=== PATIENT | male | born 1940 | race African-American/Black ===

== ENCOUNTER 2022-07-28 06:19 | Inpatient (IN) | payer MEDICARE ==
[2022-07-28] VITALS (15 sets, daily range): BP systolic 110–137; BP diastolic 66–97
[~2022-07-28] VITALS: Ht 193 cm; Wt 89.8 kg
[~2022-07-28 06:19] MED LIST: AZOPT OP; BRIM10DR2 OP; LATA2.5D14 OP; LOSA25TA26 PO; WARFARIN PO
[2022-07-28 07:48] LABS: HEMATOCRIT. 35.3 % (42.0-52.0); HEMOGLOBIN. 10.4 g/dL (14.0-18.0); MEAN CORPUSCULAR HEMOGLOBIN 21.5 pg (28.0-32.0); MEAN CORPUSCULAR VOLUME 73.2 fL (80.0-94.0); MEAN PLATELET VOLUME 9.1 fl (7.4-10.4); PLATELET 121 x1000/uL (130-400); RED BLOOD CELL COUNT 4.82 mill/uL (4.7-6.1); RED CELL DISTRIBUTION WIDTH 17.7 % (11.6-14.6)
[2022-07-28] MEDS ORDERED: CEFAZOLIN 1000MG PREMIX 100 ML IV ONE (07:48)
[2022-07-28 07:56] LABS: CHLORIDE 103 mEq/L (98-107)
[2022-07-28] MEDS ORDERED: IODIXANOL 320MG/ML 100 ML BOTTLE IV ONE (08:01)
[2022-07-28] MEDS ORDERED: LIDOCAINE HCL 1% 20ML VIAL (Pyxis) INJ ONE ×3 (08:14→10:55)
[2022-07-28] MEDS ORDERED: LIDOCAINE HCL 1% 10 MG/ML 10ML VIAL ONE (08:19)
[2022-07-28] MEDS ORDERED: MIDAZOLAM HCL 2 MG/2 ML VIAL ONE (08:20)
[2022-07-28] MEDS ORDERED: FENTANYL CITRATE/PF 50MCG/ML 2ML VIAL ONE ×3 (08:20→09:49)
[2022-07-28] MEDS ORDERED: PROPOFOL 200MG/20ML VIAL IV ONE (08:20)
[2022-07-28] MEDS ORDERED: GENTAMICIN SULF 40MG/ML 2ML VIAL ONE ×2 (08:22→12:40)
[2022-07-28] MEDS ORDERED: ROCURONIUM BROMIDE 10MG/ML VIAL 5ML IV ONE (08:29)
[2022-07-28] MEDS ORDERED: ONDANSETRON HCL 4MG/2ML INJ IV PRN (09:00)
[2022-07-28] MEDS ORDERED: MEPERIDINE HCL/PF 25MG/ML CPJ IV PRN (09:00)
[2022-07-28] MEDS ORDERED: HYDROMORPHONE HCL/PF 2MG/ML CPJ IV PRN (09:00)
[2022-07-28] MEDS ORDERED: LABETALOL 5MG/ML SYR 20 MG/4 ML SYRINGE IV PRN (09:00)
[2022-07-28 10:01] LABS: PLATELET ESTIMATE DECREASED
[2022-07-28] MEDS ORDERED: NALOXONE HCL 0.4 MG/ML 1ML VIAL ONE (13:27)
[2022-07-28] MEDS ORDERED: HYDROCODONE/ACETAMINOPHEN 5/325MG TABLET PO PRN (13:45)
[2022-07-28] MEDS ORDERED: PHENYLEPHRINE 100MCG/ML 10ML VIAL (CATH LAB) ONE (16:07)
[2022-07-28] MEDS ORDERED: APIX5TAB MT (17:08)
[2022-07-28] MEDS ORDERED: DORZ10DR8 EACHEYE (17:10)
[2022-07-28] MEDS ORDERED: NALOXONE HCL 0.4MG/ML VIAL IV PRN (17:45)
[2022-07-28] MEDS ORDERED: APIXABAN 5 MG TABLET PO SCH (19:00)
[2022-07-28 20:30] LABS: BASOPHILS % 0.4 % (0.0-2.0); EOSINOPHILS % 0.8 % (0.0-5.0); HEMATOCRIT. 32.7 % (42.0-52.0); HEMOGLOBIN. 9.8 g/dL (14.0-18.0); LYMPHOCYTES % 22.3 % (20.0-50.0); MEAN CORPUSCULAR HEMOGLOBIN 22.2 pg (28.0-32.0); MEAN CORPUSCULAR VOLUME 74.2 fL (80.0-94.0); MEAN PLATELET VOLUME 8.6 fl (7.4-10.4); MONOCYTES % 14.9 % (2.0-8.0); NEUTROPHILS % 61.6 % (40.0-76.0); PLATELET 91 x1000/uL (130-400); RED CELL DISTRIBUTION WIDTH 17.4 % (11.6-14.6)
[2022-07-28 20:40] LABS: INR 1.2; PARTIAL THROMBOPLASTIN TIME 40.5 sec (23.4-31.0)
[2022-07-29] VITALS (47 sets, daily range): BP systolic 96–142; BP diastolic 60–94
[2022-07-29 05:32] LABS: BASOPHILS % 0.3 % (0.0-2.0); EOSINOPHILS % 0.5 % (0.0-5.0); HEMATOCRIT. 30.6 % (42.0-52.0); HEMOGLOBIN. 9.5 g/dL (14.0-18.0); LYMPHOCYTES % 16.3 % (20.0-50.0); MEAN CORPUSCULAR HEMOGLOBIN 22.4 pg (28.0-32.0); MEAN CORPUSCULAR VOLUME 72.4 fL (80.0-94.0); MONOCYTES % 14.3 % (2.0-8.0); NEUTROPHILS % 68.6 % (40.0-76.0); PLATELET 96 x1000/uL (130-400); RED BLOOD CELL COUNT 4.23 mill/uL (4.7-6.1)
[2022-07-29 05:37] LABS: CHLORIDE 103 mEq/L (98-107)
[2022-07-29] MEDS ORDERED: POTASSIUM CHLORIDE 20MEQ/PACKET PO SCH (07:45)
[2022-07-29] MEDS: LOSARTAN POTASSIUM 25 MG TABLET PO SCH (08:24)
[2022-07-29] MEDS ORDERED: MAGNESIUM 2 G PREMIX 50 ML IV ONE (08:30)
[2022-07-29] MEDS ORDERED: NON FORMULARY PATIENT HOME MED XX SCH ×2 (09:00→17:15)
[2022-07-29] MEDS: DRONEDARONE 400 MG PO SCH ×2 (11:46→18:03)
[2022-07-29] MEDS: DORZOLAMIDE 2% OPHTH 10 ML BOTTLE EACHEYE SCH ×4 (11:48→18:03)
[2022-07-29] MEDS ORDERED: CARV3.1242 PO (17:20)
[2022-07-29] MEDS ORDERED: APIX5TAB PO (17:20)
[2022-07-29] MEDS ORDERED: DAPA10TA PO (17:20)
[2022-07-29] MEDS ORDERED: FOLI-43 PO (17:20)
[2022-07-29] MEDS ORDERED: NETA2.5D OP (17:20)
[2022-07-29] MEDS ORDERED: BIMA2.5D4 OP (17:20)
[2022-07-29] MEDS ORDERED: FURO40TA5 PO (17:20)
[2022-07-29] MEDS ORDERED: ATOR40TA70 PO (17:20)
[2022-07-29] MEDS: CARVEDILOL 3.125 MG TABLET PO SCH (21:39)
[2022-07-29] MEDS: ATORVASTATIN CALCIUM 40MG TABLET PO SCH (21:39)
[2022-07-29] MEDS: LUMIGAN 0.01% OP SCH (22:00)
[2022-07-30] VITALS (46 sets, daily range): BP systolic 98–133; BP diastolic 58–94
[2022-07-30 06:08] LABS: HEMATOCRIT. 30.6 % (42.0-52.0); HEMOGLOBIN. 9.5 g/dL (14.0-18.0); MEAN CORPUSCULAR HEMOGLOBIN 22.1 pg (28.0-32.0); MEAN CORPUSCULAR VOLUME 71.6 fL (80.0-94.0); MEAN PLATELET VOLUME 8.6 fl (7.4-10.4); PLATELET 103 x1000/uL (130-400); RED BLOOD CELL COUNT 4.27 mill/uL (4.7-6.1)
[2022-07-30 06:14] LABS: CHLORIDE 104 mEq/L (98-107)
[2022-07-30 06:55] LABS: PLATELET ESTIMATE DECREASED
[2022-07-30] MEDS ORDERED: POTASSIUM CHLORIDE 20MEQ/PACKET PO SCH (08:15)
[2022-07-30] MEDS: FUROSEMIDE 40MG TABLET PO SCH (08:46)
[2022-07-30] MEDS: LOSARTAN POTASSIUM 25 MG TABLET PO SCH (08:46)
[2022-07-30] MEDS: APIXABAN 5 MG TABLET PO SCH ×2 (08:47→17:02)
[2022-07-30] MEDS: CARVEDILOL 3.125 MG TABLET PO SCH ×2 (08:47→21:00)
[2022-07-30] MEDS: DRONEDARONE 400 MG PO SCH ×2 (08:48→17:02)
[2022-07-30] MEDS: DORZOLAMIDE 2% OPHTH 10 ML BOTTLE EACHEYE SCH ×3 (08:48→17:02)
[2022-07-30 12:12] LABS: CHLORIDE 104 mEq/L (98-107)
[2022-07-30] MEDS: ATORVASTATIN CALCIUM 40MG TABLET PO SCH (21:07)
[2022-07-30] MEDS: LUMIGAN 0.01% OP SCH (21:07)
[2022-07-31] VITALS (30 sets, daily range): BP systolic 111–137; BP diastolic 59–92
[2022-07-31 05:51] LABS: HEMATOCRIT 31.5 % (42.0-52.0); HEMOGLOBIN 9.8 g/dL (14.0-18.0); MEAN CORPUSCULAR HEMOGLOBIN 22.3 pg (28.0-32.0); PLATELET 103 x1000/uL (130-400); RED BLOOD CELL COUNT 4.38 mill/uL (4.7-6.1); RED CELL DISTRIBUTION WIDTH 17.3 % (11.6-14.6)
[2022-07-31 05:58] LABS: CHLORIDE 104 mEq/L (98-107)
[2022-07-31 06:13] LABS: INR 1.3; PARTIAL THROMBOPLASTIN TIME 43.9 sec (23.4-31.0); PROTHROMBIN TIME 13.5 sec (9.6-11.0)
[2022-07-31] MEDS: FUROSEMIDE 40MG TABLET PO SCH (10:05)
[2022-07-31] MEDS: DORZOLAMIDE 2% OPHTH 10 ML BOTTLE EACHEYE SCH ×3 (10:05→17:37)
[2022-07-31] MEDS: LOSARTAN POTASSIUM 25 MG TABLET PO SCH (10:05)
[2022-07-31] MEDS: APIXABAN 5 MG TABLET PO SCH ×2 (10:05→17:36)
[2022-07-31] MEDS: CARVEDILOL 3.125 MG TABLET PO SCH (10:05)
[2022-07-31] MEDS: DRONEDARONE 400 MG PO SCH ×2 (10:06→17:37)
[2022-07-31] MEDS ORDERED: PROPOFOL 200MG/20ML VIAL IV ONE (16:41)
[2022-07-31] MEDS ORDERED: LIDOCAINE HCL 1% 10 MG/ML 10ML VIAL ONE (16:41)
== END 2022-07-31 21:23 | disposition home or self-care (01) | DRG 242 ==
LOC: CCL 06:19 → CVICU 16:49
PROVIDERS: ADMIT Internal Medicine Clinical Cardiac Electrophysiology; ATTEND Internal Medicine Clinical Cardiac Electrophysiology
PROC: 5A2204Z Restoration of Cardiac Rhythm, Single (ICD-10-PCS; principal; 2022-07-28)
PROC: 0JH606Z Insertion of Pacemaker, Dual Chamber into Chest Subcutaneous Tissue and Fascia, Open Approach (ICD-10-PCS; 2022-07-28)
PROC: 02H63JZ Insertion of Pacemaker Lead into Right Atrium, Percutaneous Approach (ICD-10-PCS; 2022-07-28)
PROC: 0JPT0PZ Removal of Cardiac Rhythm Related Device from Trunk Subcutaneous Tissue and Fascia, Open Approach (ICD-10-PCS; 2022-07-28)
PROC: 02HK3JZ Insertion of Pacemaker Lead into Right Ventricle, Percutaneous Approach (ICD-10-PCS; 2022-07-28)
PROC: 5A2204Z Restoration of Cardiac Rhythm, Single (ICD-10-PCS; 2022-07-31)
PROC: 4B02XSZ Measurement of Cardiac Pacemaker, External Approach (ICD-10-PCS; 2022-07-31)
PROC: 4A02XFZ Measurement of Cardiac Rhythm, External Approach (ICD-10-PCS; 2022-07-31)
DX: I49.5 Sick sinus syndrome (principal); I50.33 Acute on chronic diastolic (congestive) heart failure; J96.00 Acute respiratory failure, unspecified whether with hypoxia or hypercapnia; I48.21 Permanent atrial fibrillation; J94.2 Hemothorax; I48.4 Atypical atrial flutter; I42.0 Dilated cardiomyopathy; I35.1 Nonrheumatic aortic (valve) insufficiency; I11.0 Hypertensive heart disease with heart failure; E83.42 Hypomagnesemia; E87.6 Hypokalemia; H40.9 Unspecified glaucoma; Z95.0 Presence of cardiac pacemaker; Z79.01 Long term (current) use of anticoagulants; Z95.2 Presence of prosthetic heart valve
CPT/HCPCS: 33208; 36415; 71045; 75822; 80048; 83735; 85025; 85027; 92960; 93005; A4565; C1769; C1785; C1893; C1898; J0690; J1580; J2250; J2310; J2370; J2704; J3010; J3475; J3490; Q9967